=== PATIENT | female | born 1940 | race Caucasian/White ===

== ENCOUNTER → 2017-08-24 | Day surgery (SDC) | payer OTHER ==
[2017-08-05 09:10] VITALS: Ht 157.5 cm; Wt 72.7 kg
[~2017-08-24] VITALS: Ht 157.5 cm; Wt 72.7 kg
[~2017-08-24] MED LIST: 500ML BSS 0.3ML EPI 1:1000PF IRRIG ONE; ACET-1256 PO; ACETAMINOPHEN 325 MG TAB PO PRN; AMVISC PLUS 0.8ML SYRINGE INT OCU ONE; ASPI-390 PO; ATROPINE SULFATE 0.1 MG/ML 5ML SYR IV PRN; AcetaZOLAMIDE 250 MG TAB PO SCH; BETAXOLOL HCL 0.25% OP SUSP PER DROP CHARGE OPR SCH; BRIMONIDINE TART 0.2% OP SOLN PER DROP CHARGE ONE; ENDOCOAT 0.85ML SYRINGE INT OCU ONE; EpHEDrine SULFATE INJ 50 MG/ML AMP IV PRN; EpINEphrine INJ 1MG/ML AMP 1 MG/ML AMP ONE; LACTATED RINGER'S 1000ML 500 ML IV SCH; LIDOCAINE 4% OP SOLN DROP CHARGE ONE; LIDOCAINE 4% OP SOLN DROP CHARGE OPR SCH; LIDOCAINE HCL 1% MPF 2 ML VIAL ONE; LOSA1TAB38 PO; METO50TA7 PO; MIDAZOLAM HCL 1 MG/ML 2ML VIAL ONE; MIX: 4ML BSS 1ML EPI 1:1000 PF INSTIL ONE; MOXIFLOXACIN OPH SOLN PER DROP CHARGE ONE; MULT-506 PO; OCUCOAT 1 ML SOLN IO ONE; POVIDONE-IODINE OP SOLN 30 ML BTL ONE; PROPARACAINE 0.5% OP SOLN PER DROP CHARGE OPR SCH; PRVC/20 PO; SERT50TA PO; TOBRAMYCIN/DEXAMETHASONE OPH OINT PER APPLN CHARGE ONE; TRAM-10 PO
--- NOTE | 2017-08-24 06:31 | History & Physical Bridge - [place] ---
H&P Re-Evaluation Bridge Note: I have examined the patient, reviewed the History & Physical and in the interval since the performance of the History & Physical I have noted the following changes of clinical significance: No changes noted
[2017-08-24] MEDS: PHENYLEPHRINE HCL 2.5% OP SOLN PER DROP CHARGE OPR SCH ×2 (06:53→06:59)
[2017-08-24] MEDS: TROPICAMIDE 1% OP SOLN PER DROP CHARGE OPR SCH ×2 (06:54→07:00)
[2017-08-24] MEDS: CYCLOPENTOLATE HCL 1% OP SOLN PER DROP CHARGE OPR SCH ×2 (06:55→07:01)
[2017-08-24] MEDS: MOXIFLOXACIN OPH SOLN PER DROP CHARGE OPR SCH ×2 (06:56→07:07)
--- NOTE | 2017-08-24 07:31 | Discharge Instructions-SurgCtr ---
Discharge Instructions Date of Service Aug 24, 2017. Visit Reason for Visit: Cataract Right Eye Discharge Discharge Diagnosis / Problem: lens implant right eye Discharge Goals Goal(s): Improve function Activity Recommendations Activity Limitations: resume your previous activity Lifting Limitations: no more than 10 pounds Exercise/Sports Limitations: gradually increase as tolerated May Resume Sexual Activity: when tolerated Shower/Bathe: tomorrow Driving or Machine Use: resume 1 day after discharge Anesthesia . Post Anesthesia Instructions: If you have had General Anesthesia or IV Sedation: * Do not drive today. * Resume driving when surgeon permits. * Do not make important decisions or sign legal documents today. * Call surgeon for: 1. Temperature elevations greater than 101 degrees F. 2. Uncontrollable pain. 3. Excessive bleeding. 4. Persistent nausea and vomiting. 5. Medication intolerance (nausea, vomiting or rash). * For nausea and vomiting use only clear liquids such as: tea, soda, bouillon until nausea subsides, then gradually increase diet as tolerated. * If you have any concerns or questions, call your surgeon's office. If physician is unavailable and it is an emergency, call 911 or go to the nearest emergency room. . Instructions / Follow-Up Instructions / Follow-Up ACTIVITY RECOMMENDATIONS: * Light activities. * Mild irritation and blurred vision are common for the first few days. * You may walk outside, read, watch television. * Redness around the white part of the eye is common. MEDICATIONS: Resume previous medications unless instructed otherwise by your surgeon. * Take white Diamox (Acetazolamide) tablet at 1 pm today. Start all eye drops at 1 pm today: * Eye drops (today and tomorrow): Prednisone - one drop in operative eye every 3 hours while awake Ofloxacin - one drop in operative eye every 3 hours while awake SPECIAL CARE INSTRUCTIONS: * Tape plastic shield over eye to sleep at night. Call your doctor at with any concerns or problems. FOLLOW UP VISIT: Follow-up with Dr Gustafson at [place] office as scheduled. Diet Recommendations Home Diet: no limitations Procedures Procedures Performed: cataract extraction with lens implant Pending Studies Studies pending at discharge: no Medical Emergencies . Who to Call and When: Medical Emergencies: If at any time you feel your situation is an emergency, please call 911 immediately. . Non-Emergent Contact Non-Emergency issues call your: [employer] Call Non-Emergent contact if: your pain is not controlled [phone] . . "Provider Documentation" section prepared by Jesus Gustafson. .
--- NOTE | 2017-08-24 07:33 | [facility] Operative Report ---
Operative Report Date of Service Aug 24, 2017. Operative Report 1. PREOPERATIVE DIAGNOSIS: Senile nuclear cataract, right eye. 2. POSTOPERATIVE DIAGNOSIS: Senile nuclear cataract, right eye. 3. PROCEDURE: Phacoemulsification of right cataract with posterior chamber lens implant, type [employer], model MX60, power +20.5 diopters. ANESTHESIA: Local standby. SURGEON: Dr. Gustafson. COMPLICATIONS: None. OPERATING TIME: 10 minutes. 4. OPERATION AND FINDINGS: DESCRIPTION OF PROCEDURE: The right pupil was dilated. The anesthetic was administered using a topical technique. The right eye was prepped and draped. A speculum was placed. A clear corneal incision was formed. The chamber was filled with Amvisc Plus and Endocoat. Epinephrine solution was used. A paracentesis was placed. A capsulorrhexis was performed. The nucleus was hydrodissected. The lens was removed with phacoemulsification. Time was 3.77 seconds. The aspiration unit was used to remove the cortex. The capsule was filled with Amvisc Plus. The lens implant was folded and placed into the capsule. The incision was hydrated. The Amvisc was aspirated. The wound was secure. The chamber was deep. The pupil was round. Brimonidine, TobraDex ointment and Vigamox solution were placed. The speculum was removed. The patient was returned to the Recovery Room in stable condition. I attest to the content of the Intraoperative Record and any orders documented therein. Any exceptions are noted below. The scribe's documentation has been prepared in my presence, under my direction and personally reviewed by me in its entirety. I confirm that the note above accurately reflects all work, treatment, procedures, and medical decision making performed by me. I personally scribed for Jesus Gustafson M.D. ([email or web address]) on 08/24/17 at 07:33. Electronically submitted by Kyra Ervin (MIN).
--- NOTE | 2017-08-24 07:40 | Anesthesia Progress Nt - [facility] ---
Anesthesia Post Op Note Date & Time Aug 24, 2017 at 07:40 Vital Signs Pain Intensity: 3 Vital Signs Past 12 Hours Date Time Temp Pulse Resp B/P (MAP) Pulse Ox O2 Delivery O2 Flow Rate FiO2 08/24/17 06:47 36.9 78 16 145/70 (95) 96 Room Air Notes Mental Status: alert / awake / arousable, participated in evaluation Pt Amnestic to Procedure: Yes Nausea / Vomiting: adequately controlled Pain: adequately controlled Airway Patency, RR, SpO2: stable & adequate BP & HR: stable & adequate Hydration State: stable & adequate Anesthetic Complications: no major complications apparent
[2017-08-24 07:44] VITALS: TEMP 36.8
[2017-08-24 08:06] VITALS: BP 161/81; PULSE 60; O2SAT 97
== END | disposition home or self-care (01) ==
LOC: X.SURG 06:25
PROVIDERS: ATTEND Specialist
DX: H25.11 Age-related nuclear cataract, right eye (principal); I10 Essential (primary) hypertension; J44.9 Chronic obstructive pulmonary disease, unspecified; K21.9 Gastro-esophageal reflux disease without esophagitis; Z90.89 Acquired absence of other organs; Z90.710 Acquired absence of both cervix and uterus; F41.9 Anxiety disorder, unspecified; F32.9 Major depressive disorder, single episode, unspecified; Z85.818 Personal history of malignant neoplasm of other sites of lip, oral cavity, and pharynx; Z79.899 Other long term (current) drug therapy

== ENCOUNTER → 2018-01-09 | Outpatient (CLI) | payer OTHER ==
[~2018-01-09] MED LIST changes: -500ML BSS 0.3ML EPI 1:1000PF IRRIG ONE; -ACETAMINOPHEN 325 MG TAB PO PRN; -AMVISC PLUS 0.8ML SYRINGE INT OCU ONE; -ATROPINE SULFATE 0.1 MG/ML 5ML SYR IV PRN; -AcetaZOLAMIDE 250 MG TAB PO SCH; -BETAXOLOL HCL 0.25% OP SUSP PER DROP CHARGE OPR SCH; -BRIMONIDINE TART 0.2% OP SOLN PER DROP CHARGE ONE; -ENDOCOAT 0.85ML SYRINGE INT OCU ONE; -EpHEDrine SULFATE INJ 50 MG/ML AMP IV PRN; -EpINEphrine INJ 1MG/ML AMP 1 MG/ML AMP ONE; -LACTATED RINGER'S 1000ML 500 ML IV SCH; -LIDOCAINE 4% OP SOLN DROP CHARGE ONE; -LIDOCAINE 4% OP SOLN DROP CHARGE OPR SCH; -LIDOCAINE HCL 1% MPF 2 ML VIAL ONE; -METO50TA7 PO; +METO50TA8 PO; -MIDAZOLAM HCL 1 MG/ML 2ML VIAL ONE; -MIX: 4ML BSS 1ML EPI 1:1000 PF INSTIL ONE; -MOXIFLOXACIN OPH SOLN PER DROP CHARGE ONE; -OCUCOAT 1 ML SOLN IO ONE; -POVIDONE-IODINE OP SOLN 30 ML BTL ONE; -PROPARACAINE 0.5% OP SOLN PER DROP CHARGE OPR SCH; -TOBRAMYCIN/DEXAMETHASONE OPH OINT PER APPLN CHARGE ONE
[2018-01-09 17:45] LABS: BASO % 0.4 %; BASO ABS # 0.03 K/uL (0-0.2); EOS % 3.1 %; EOS ABS # 0.22 K/uL (0-0.5); HEMATOCRIT 37.7 % (37-47); HEMOGLOBIN 11.5 g/dL (12.0-16.0); IG# 0.01 K/uL (0.00-0.02); LYMPH % 26.6 %; LYMPH ABS # 1.86 K/uL (1.2-3.4); MEAN CORPUSCULAR HEMOGLOBIN 30.5 pg (25-34); MEAN CORPUSCULAR HGB CONC 30.5 g/dl (32-36); MEAN PLATELET VOLUME 10.4 fL (7.4-10.4); MONO ABS # 0.42 K/uL (0.11-0.59); NEUT % 63.8 %; NEUT ABS # 4.45 K/uL (1.4-6.5); PLATELET COUNT 295 K/uL (130-400); RED CELL DISTRIBUTION WIDTH CV 14.1 % (11.5-14.5); RED CELL DISTRIBUTION WIDTH SD 51.7 fL (36.4-46.3); WHITE BLOOD COUNT 6.99 K/uL (4.8-10.8)
[2018-01-09 18:35] LABS: ALBUMIN 4.2 gm/dl (3.4-5.0); ALKALINE PHOSPHATASE 75 U/L (45-117); ALT/SGPT 19 U/L (12-78); AST/SGOT 22 U/L (15-37); BLOOD UREA NITROGEN 18 mg/dl (7-18); CALCIUM 9.3 mg/dl (8.5-10.1); CARBON DIOXIDE 29 mmol/L (21-32); CHOLESTEROL 201 mg/dl (0-200); CREATININE 0.67 mg/dl (0.60-1.20); GLUCOSE 99 mg/dl (70-99); LDL CHOLESTEROL CALCULATED 106 mg/dl; POTASSIUM 4.1 mmol/L (3.5-5.1); SODIUM 138 mmol/L (136-145); TOTAL PROTEIN 7.9 gm/dl (6.4-8.2)
== END | disposition home or self-care (01) ==
LOC: C.LABMFLN 13:47
PROVIDERS: ATTEND Family Medicine
DX: E78.5 Hyperlipidemia, unspecified (principal); R05 Cough; E89.0 Postprocedural hypothyroidism

== ENCOUNTER → 2018-02-01 | Outpatient (CLI) | payer OTHER ==
[2018-02-01 12:37] LABS: BASO % 0.4 %; BASO ABS # 0.03 K/uL (0-0.2); EOS ABS # 0.21 K/uL (0-0.5); HEMATOCRIT 37.1 % (37-47); HEMOGLOBIN 11.6 g/dL (12.0-16.0); IG# 0.01 K/uL (0.00-0.02); LYMPH % 22.4 %; LYMPH ABS # 1.57 K/uL (1.2-3.4); MEAN CELL VOLUME 99.5 fL (80-100); MEAN CORPUSCULAR HEMOGLOBIN 31.1 pg (25-34); MEAN CORPUSCULAR HGB CONC 31.3 g/dl (32-36); MEAN PLATELET VOLUME 10.1 fL (7.4-10.4); MONO % 6.6 %; MONO ABS # 0.46 K/uL (0.11-0.59); NEUT % 67.5 %; NEUT ABS # 4.74 K/uL (1.4-6.5); PLATELET COUNT 254 K/uL (130-400); RED CELL DISTRIBUTION WIDTH CV 14.5 % (11.5-14.5); RED CELL DISTRIBUTION WIDTH SD 52.7 fL (36.4-46.3); WHITE BLOOD COUNT 7.02 K/uL (4.8-10.8)
== END | disposition home or self-care (01) ==
LOC: C.LABMFLN 10:19
DX: D64.9 Anemia, unspecified (principal)

== ENCOUNTER → 2018-06-19 | Outpatient (CLI) | payer OTHER ==
[2018-06-19 18:42] LABS: CHOLESTEROL 148 mg/dl (0-200); LDL CHOLESTEROL CALCULATED 68 mg/dl
== END | disposition home or self-care (01) ==
LOC: C.LABMFLN 15:37
PROVIDERS: ATTEND Family Medicine
DX: E78.5 Hyperlipidemia, unspecified (principal); I48.91 Unspecified atrial fibrillation

== ENCOUNTER 2024-09-26 13:18 | Inpatient (IN) ==
[2024-09-26 14:15] LABS: Eosinophils # (auto) 0.04 K/uL (0.00-0.50); Eosinophils % (auto) 0.7 %; Hematocrit (blood only) 35.4 % (37.0-47.0); Hemoglobin 10.8 g/dl (12.0-16.0); Immature Granulocytes # (auto) 0.04 K/uL (0.01-0.20); Immature Granulocytes % (auto) 0.7 %; Lymphocytes % (auto) 16.2 %; Mean Corpuscular Hgb Conc 30.5 g/dL (32.0-36.0); Mean Corpuscular Volume 101.7 fL (80.0-100.0); Mean Platelet Volume 9.9 fL (9.4-12.4); Neutrophils # (auto) 4.09 K/uL (1.40-6.50); Neutrophils % (auto) 73.4 %; Platelet Count 167 K/uL (130-400); RDW Standard Deviation 51.7 fL (36.4-46.3); Red Blood Count 3.48 M/uL (4.20-5.40); White Blood Count 5.57 K/ul (4.8-10.8)
--- NOTE | 2024-09-26 14:26 | XRay Report ---
XR chest 1V portable HISTORY: 84 years-old Female Chest pain, nonspecific COMPARISON: 08/25/2018 TECHNIQUE: AP view of the chest FINDINGS: Cardiac silhouette is enlarged. Mitral annular calcifications. Atherosclerosis of the aorta. Mild chr onic interstitial coarsening. No pneumothorax or large pleural effusion. No airspace consolidation ty pical for pneumonia. Mild left basilar atelectasis versus scarring. Bones appear grossly intact. IMPRESSION: Cardiomegaly without acute process. ACT 112: Negative or not required by law. The above report was generated using voice recognition software. It may contain grammatical, syntax o r spelling errors. Electronically signed by: Zbigniew Baltazar M.D. 09/26/2024 2:24 PM
[2024-09-26 14:41] LABS: Prothrombin Time 11.3 Seconds (9.0-12.0)
[2024-09-26 14:43] LABS: Alanine Aminotransferase 20 U/L (7-52); Albumin Globulin Ratio 1.3 (0.9-2); Albumin Level 4.4 gm/dl (3.4-5.0); Alkaline Phosphatase 71 U/L (34-104); Anion Gap 9 (3-11); Aspartate Aminotransferase 38 U/L (13-39); BUN Creatinine Ratio 25.7 (10-20); Bilirubin,Total 0.4 mg/dl (0.2-1.0); Blood Urea Nitrogen 29 mg/dl (6-23); Calcium 9.6 mg/dl (8.6-10.3); Carbon Dioxide 26 mmol/L (21-32); Chloride 104 mmol/L (98-107); Globulin 3.4 gm/dl (2.5-4.0); Glucose 100 mg/dl (70-99(Fasting)); Lipase 63 U/L (11-82); Magnesium 1.9 mg/dl (1.7-2.4); Phosphorus 3.6 mg/dl (2.5-4.9); Potassium 3.5 mmol/L (3.5-5.1); Sodium 139 mmol/L (136-145); Total Protein 7.8 gm/dl (6.0-8.3)
[2024-09-26 14:48] LABS: Troponin I High Sensitivity 20.6 pg/ml (0-14)
[2024-09-26 14:57] LABS: Thyroid Stimulating Hormone 2.384 uIu/ml (0.300-4.500)
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
[2024-09-26] MEDS: METOPROLOL TARTRATE 1 MG/ML VIAL IV STA (15:39)
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
[2024-09-26] MEDS ORDERED: ALBUTEROL HFA 8 GM INHALER INH PRN (17:30)
[2024-09-26] MEDS ORDERED: ACETAMINOPHEN 325 MG TAB PO PRN (17:30)
[2024-09-26] MEDS: Patient's HEIGHT &/or WEIGHT Needed STA (18:20)
[2024-09-26] MEDS: HYDROCODONE/ACETAMOPHEN 5/325MG TAB PO SCH (18:20)
[2024-09-26 18:31] LABS: Appearance Urine Cloudy (Clear); Bacteria Urine Automated 4+ (None Seen); Bilirubin Urine Negative (Negative); Blood Urine 1+ (Negative); Color Urine Yellow; Epithelial Cell Urine Auto 0-2 /hpf (0-2); Glucose Urine UA Negative (Negative); Ketones Urine Negative (Negative); Leukocyte Esterase Urine 2+ (Negative); Nitrite Urine Positive (Negative); Protein Urine 2+ (Negative); RBC Urine Automated 0-2 /hpf (0-2); Specific Gravity Urine 1.021 (1.000-1.030); Urobilinogen Urine Negative (Negative); WBC Urine Automated >50 /hpf (0-5)
[2024-09-26] MEDS: RIVAROXABAN 15 MG TAB PO SCH (19:26)
[2024-09-26] MEDS ORDERED: METOPROLOL TARTRATE 1 MG/ML VIAL IV PRN (20:29)
[2024-09-26] MEDS ORDERED: MELATONIN 3 MG TAB PO PRN (20:39)
[2024-09-26] MEDS: SERTRALINE HCL 100 MG TABLET PO SCH (20:52)
[2024-09-26] MEDS: PRAVASTATIN SOD 40 MG TAB PO SCH (20:52)
[2024-09-26] MEDS: POTASSIUM CHLORIDE 10 MEQ TABCR PO SCH (20:52)
[2024-09-26] MEDS: busPIRone 15 MG TAB PO SCH (20:53)
[2024-09-26] MEDS: METOPROLOL TARTRATE 1 MG/ML VIAL IV ONE (20:53)
[2024-09-26] MEDS: LORazepam 0.5 MG TAB SL PRN (21:27)
[2024-09-26] MEDS: cefTRIAXone SODIUM 2,000 MG/50 ML BAG IV SCH (21:28)
[2024-09-26] MEDS: DICLOFENAC SOD 1% GEL 100 GM TUBE EXT SCH (21:51)
[2024-09-26] MEDS: LORazepam 2 MG/1 ML VIAL IV STA (23:00)
--- NOTE | 2024-09-26 23:14 | Communication Note ---
Date of Service: September 26, 2024 Alerted by nursing 20:21 that patient having 9/10 left sided chest pain. Resident to bedside. EKG, per my read, without obvious ST elevations. Rate elev ated in the 120s. Given 2.5 mg IV metoprolol. Pain reproducible with medium pressure. Has this pain at home as well. Has improved since switching to laying on her right side. HR rapid and irregular. Did order voltaren gel and 0.5 mg SL ativan for acute anxiety. Alerted by nursing 22:32 that patient feels she is "burning up", HR in the 160s, very anxious. Symptoms occurred about 30 minutes after finishing her dose of CTX. Resident to bedside. Upon my interview patient sitting comfortable in a chair. Is having some anxious movements and slightly elevated respiratory rate. HR in the 130s at that time. No rashes, fevers, or chills. Patient states feeling like she had an episode of panic. This is atypical for her. Patient had calmed down a good amount. SL ativan with minimal effects, ordered 1 mg IV ativan. Did review tele with the site monitor - a fib with RVR, narrow complex, irregular Alerted by nursing 23:34 that patient has had a change in mental status. Patient less anxious after ativan, but now appears to be in hyperactive delirium. Patient appears to be hallucinating, speaking to herself, and is no longer oriented. Patient OOB despite bed alarm. Did trial mits and patient removed them swiftly. Ordered 1:1. Would avoid ativan in the future. Will continue to follow with patient care. Resident Activity Tracking Resident Involvement: Resident Care Provided Care Provided: Adult Hospital Medicine
[2024-09-27] MEDS: METOPROLOL TARTRATE 1 MG/ML VIAL IV PRN (00:21)
[2024-09-27 03:37] LABS: Basophils # (auto) 0.01 K/uL (0.00-0.20); Basophils % (auto) 0.2 %; Eosinophils # (auto) 0.01 K/uL (0.00-0.50); Eosinophils % (auto) 0.2 %; Hematocrit (blood only) 32.4 % (37.0-47.0); Hemoglobin 10.2 g/dl (12.0-16.0); Immature Granulocytes # (auto) 0.03 K/uL (0.01-0.20); Immature Granulocytes % (auto) 0.5 %; Lymphocytes # (auto) 0.63 K/uL (1.20-3.40); Lymphocytes % (auto) 10.8 %; Mean Corpuscular Hemoglobin 31.5 pg (25.0-34.0); Mean Corpuscular Hgb Conc 31.5 g/dL (32.0-36.0); Mean Platelet Volume 10.4 fL (9.4-12.4); Monocytes % (auto) 6.9 %; Neutrophils # (auto) 4.75 K/uL (1.40-6.50); Neutrophils % (auto) 81.4 %; Platelet Count 153 K/uL (130-400); RDW Coefficient of Variation 13.9 % (11.5-14.5); RDW Standard Deviation 50.7 fL (36.4-46.3); Red Blood Count 3.24 M/uL (4.20-5.40); White Blood Count 5.83 K/ul (4.8-10.8)
[2024-09-27 03:44] LABS: BUN Creatinine Ratio 29.5 (10-20); Calcium 9.1 mg/dl (8.6-10.3); Creatinine Clr Calc Pharmacy 34.8 ml/min; Potassium 4.4 mmol/L (3.5-5.1)
--- NOTE | 2024-09-27 06:03 | Electrocardiogram Report ---
Test Reason : Blood Pressure : */* mmHG Vent. Rate : 115 BPM Atrial Rate : * BPM P-R Int : * ms QRS Dur : 112 ms QT Int : 348 ms P-R-T Axes : * -59 98 degrees QTcB Int : 481 ms Atrial fibrillation with rapid ventricular response with premature ventricular or aberrantly conducte d complexes Left anterior fascicular block Minimal voltage criteria for LVH, may be normal variant Nonspecific ST and T wave abnormality Abnormal ECG When compared with ECG of 25-Aug-2018 21:09, Nonspecific T wave abnormality no longer evident in Inferior leads T wave inversion less evident in Lateral leads Confirmed by Luke Retana ([id number]) on 09/27/2024 6:03:39 AM Referred By: REFERRED SELF Confirmed By: Luke Retana
[2024-09-27] MEDS: METOPROLOL TARTRATE 1 MG/ML VIAL IV STA (07:33)
[2024-09-27] MEDS: ONDANSETRON INJ 2 MG/ML 2 ML VIAL IV PRN (08:38)
[2024-09-27] MEDS: LOSARTAN POTASSIUM 50 MG TAB PO SCH (08:42)
[2024-09-27] MEDS: FAMOTIDINE 40 MG TABLET PO PRN (08:43)
[2024-09-27] MEDS ORDERED: STAT IV Infusion **Titration per Protocol STA (08:54)
--- NOTE | 2024-09-27 09:02 | Cardiology Consultation ---
Date of Consultation September 27, 2024 Assessment & Plan (1) Atrial fibrillation with rapid ventricular response: (2) On amiodarone therapy: (3) Chest pain: (4) Elevated troponin: (5) Mitral regurgitation: (6) CAD (coronary artery disease): (7) Hypertension: Plan ASSESSMENT/PLAN: 1. Paroxysmal atrial fibrillation with rapid ventricular response: Very symptomatic in the past and currently. Recommend restoring sinus rhythm. Risk and benefits of cardioversion were discussed with her. She was agreeable to proceed. Continue her home dose of amiodarone 100 mg daily. It was apparently reduced in the past due to tremor. Further adjustments can be determined in the outpatient setting if she has significant recurrence of her atrial fibrillation. Continue anticoagulation for stroke risk reduction, without interruption for at least 4 weeks following cardioversion. 2. Chest pain: Per her history, chest pain has been attributed to atrial fibrillation in the past and currently. Can reassess her symptoms following cardioversion. 3. Elevated troponin: Very mildly elevated. Likely due to demand ischemia in the setting of A-fib with RVR. 4. Amiodarone therapy: Takes 100 mg of amiodarone chronically at home. Apparently had dose reduced in the past by her providers due to tremor. Monitor TSH and transaminase levels while on amiodarone. Resume her home dose of amiodarone to help try to maintain sinus rhythm following cardioversion. 5. Mitral and tricuspid regurgitation: Nonsevere within the past couple of months. Can be followed up in the outpatient setting with Dr. Muñoz. 6. UTI: As per primary hospitalist service. 7. Hypertension: Blood pressure has been elevated but also has been very anxious with her A-fib with RVR. Continue ARB and beta-mihai. Further adjustments can be made by the primary hospitalist service if appropriate. 8. CAD: Per records, nonobstructive CAD. Will reassess for chest discomfort once sinus rhythm is restored. Risk factor modification. On statin therapy. Details of her CAD are not well-known to me at the time of this note. 9. Disposition: Follow-up with Dr. Muñoz in the outpatient setting, her primary all around presser. Plan of care communicated with primary hospital team, Dr. Ochoa. Plan of care discussed with nursing staff at the bedside this morning. Thank you for allowing me to participate in the care of your patient. Please call for any other questions or concerns. Sincerely, Nikita Retana M.D. History of Present Illness Reason for Consultation: afib rvr Requesting Physician: Dr. Reed Attending Physician: Aramis Araujo DO History of Present Illness Mrs. Frank is a very pleasant 84-year-old female with a history significant for paroxysmal atrial fibrillation on amiodarone and anticoagulation therapy, nonocclusive CAD, hypertension, dyslipidemia, and mitral regurgitation. Her primary all around presser is Dr. Muñoz. She was seen by Dr. Muñoz on 09/26/2024 in the outpatient setting and sent to the emergency department due to symptomatic atrial fibrillation. She had been in atrial fibrillation for at least several days. She has been experiencing chest discomfort, even at rest. She states that she felt the same symptoms in the past when she had atrial fibrillation and it resolved after cardioversion. She has decreased exercise tolerance and feels very weak and tired with exertion. She has dyspnea on exertion. She states that the symptoms were not present outside of the A-fib. When I walked in her room this morning, she said lets get things going. She wanted to be cardioverted. Overnight, she received Ativan and apparently had some hallucinations and confusion. Things seem to be improved this morning. She has been kept NPO. She denies melena, hematochezia, hematuria, TIA, stroke, diabetes. Review of systems: As above. Family history: Noncontributory. Social history: She denies tobacco, alcohol, or drug abuse. She lives at home with her . She had 5 children but 2 have since . She was unaccompanied. Allergies Allergy/AdvReac Type Severity Reaction Status Date / Time brimonidine Allergy Unknown not sure Verified 09/26/24 09:06 isosorbide [From Imdur] Allergy Verified 09/26/24 09:06 Carboxymethylcellulose Allergy Unknown not sure Uncoded 09/26/24 09:06 Home Medications Medication Instructions Recorded Confirmed Type [id number]-[id number] 250 1 tab PO Q6H PRN Migraine Headache 08/25/18 09/26/24 History mg-250 mg-65 mg tablet (Excedrin Migraine) multivitamin 1 tab PO QAM 07/29/22 09/26/24 History potassium chloride 10 mEq 10 meq PO BID #180 tabs 03/07/24 09/26/24 Rx tablet,extended release(part/cryst) ondansetron HCl 4 mg tablet 4 mg PO Q8H PRN nausea and 03/26/24 09/26/24 Rx vomiting #30 tabs albuterol sulfate 90 mcg/actuation 2 puff inhalation Q6H PRN 03/27/24 09/26/24 Rx aerosol inhaler shortness of breath or wheezing #6.7 grams pravastatin 40 mg tablet 40 mg PO HS #90 tabs 05/31/24 09/26/24 Rx buspirone 10 mg tablet 15 mg (1.5 x 10 mg) PO TID #270 08/03/24 09/26/24 Rx tabs sertraline 100 mg tablet 100 mg PO BID #180 tabs 08/24/24 09/26/24 Rx hydrocodone 5 mg-acetaminophen 325 1 tab PO Q6H #120 tabs 09/17/24 09/26/24 Rx mg tablet acetaminophen 500 mg tablet 1,000 mg PO Q6H PRN Pain 09/26/24 09/26/24 History famotidine 40 mg tablet (Pepcid) 40 mg PO DAILY PRN Heartburn 09/26/24 09/26/24 History furosemide 20 mg tablet (Lasix) 60 mg PO QAM 09/26/24 09/26/24 History losartan 100 mg tablet (Cozaar) 100 mg PO QAM 09/26/24 09/26/24 History metoprolol succinate 25 mg 25 mg PO QAM 09/26/24 09/26/24 History tablet,extended release 24 hr ramelteon 8 mg tablet (Rozerem) 4 mg PO HS 09/26/24 09/26/24 History rivaroxaban 15 mg tablet (Xarelto) 15 mg PO QPM 09/26/24 09/26/24 History Problem List Elevated troponin On rivaroxaban therapy (Acute) Generalized weakness (Acute) Dyspnea on minimal exertion (Acute) Atrial fibrillation with rapid ventricular response (Acute) Palpitations Pain of both hip joints Thoracic back pain Cervical pain Rib pain on left side Status post fall Anticoagulant long-term use Head injury Confusion Lumbar pain CKD (chronic kidney disease), stage III Headache On amiodarone therapy Chest pain Abdominal pain Fatigue Left-sided chest pain Bronchitis Left ear impacted cerumen Chest pain Anemia Myalgia Anxiety Hernia Renal stone Left lower quadrant abdominal mass Situational anxiety Tricuspid regurgitation (Chronic) Shortness of breath (Chronic) Restrictive lung disease (Chronic) Pulmonary HTN (Chronic) New onset atrial fibrillation (Chronic) Nausea and vomiting (Chronic) Multiple pulmonary nodules (Chronic) Mitral regurgitation (Chronic) Medicare annual wellness visit, initial (Chronic) Malignant neoplasm of tonsil (Chronic) Leukocytosis (Chronic) Hypokalemia (Chronic) Hypertension (Chronic) Hyperlipidemia (Chronic) H/O partial thyroidectomy (Chronic) Epistaxis (Chronic) Elevated liver function tests (Chronic) Edema (Chronic) Dyspnea, unspecified (Chronic) Dysphagia (Chronic) Depression (Chronic) Cough (Chronic) Chest pain (Chronic) COPD (chronic obstructive pulmonary disease) (Chronic) CAD (coronary artery disease) (Chronic) Bilateral leg edema (Chronic) Anemia (Chronic) Abdominal pain (Chronic) Patient History Medical History History of thyroid cancer Thyroid cancer Afib Surgical History History of tonsillectomy History of carpal tunnel surgery bilateral History of tooth extraction 11 years old History of section History of tubal ligation History of throat surgery History of cardiac catheterization History of colonoscopy History of colon surgery History of hysterectomy History of back surgery Family History Mother Malignant melanoma Coronary heart disease Son Blood clot in vein basilio - 52 years old Asthma Father Coronary heart disease Denies family history of Ovarian cancer Prostate cancer Myocardial infarction Breast cancer Colorectal cancer Social History Smoking Status: Never smoker Second Hand Exposure: Yes; Do You Dip or Chew Tobacco: No; Hx Alcohol Use: Yes Alcohol type: wine Hx Substance Use: No Preferred Language: [place] Citizen Communication Ability: Effective Visual Impairment: Partially Limited Hearing Ability: Normal Timber Management Specialist Required: Yes Beliefs That Will Affect Care: None marital status: Current Living Situation: Spouse current occupational status: retired How many Children do You have: 5 Other Information That Helps Us Care for You: No Feels Safe at Home: Yes Safety Concerns: Feels Safe At This Time Childhood Exposure to Second-Hand Smoke: Yes Diet: regular caffeine: Yes (nini tacos, coffee once daily) during the past year weight has: remained stable Dental Care, Regularly: No Physical Activity Frequency: Does not Exercise Seatbelt Use: always Sunscreen Use: No Do you think of yourself as: straight/heterosexual Gender Identity: Female Assistive Devices: Cane, Denture - Upper, Denture - Lower and Walker Physical Exam Physical Exam: Gen.: No acute distress. Alert and oriented x 3. HEENT: Anicteric sclera. Neck: No JVD. No bruits. Normal carotid upstrokes bilaterally. Cardiac: Irregularly irregular and tachycardic. Normal S1-S2. 1/6 systolic murmur. Pulmonary: Clear to auscultation bilaterally without wheezes, rales, or rhonchi. Abdomen: Soft, nontender, nondistended, with normoactive bowel sounds. No bruits noted. Extremities: 2+ radial pulses bilaterally. 2+ posterior tibialis pulses bilaterally. No edema or cyanosis. Results & Data Vital Signs (Past 12 Hours) Vital Signs Temp Pulse Pulse Resp BP BP BP 09/27/24 07:58 141 H 154/100 H 09/27/24 07:33 145 H 130/86 09/27/24 03:47 36.7 C 114 H 18 125/88 09/27/24 00:36 132 H 152/82 H 09/27/24 00:21 137 H 155/83 H 09/26/24 22:33 36.7 C 138 H 18 156/95 H 09/26/24 22:20 125 H 148/72 H 09/26/24 21:54 116 H Pulse Ox O2 Del Method 09/27/24 07:58 09/27/24 07:33 09/27/24 03:47 91 Room Air 09/27/24 00:36 09/27/24 00:21 09/26/24 22:33 98 Room Air 09/26/24 22:20 09/26/24 21:54 Laboratory Results Laboratory Results - last 24 hr 09/26/24 09/26/24 09/26/24 13:51 15:42 17:35 WBC 5.57 RBC 3.48 L Hgb 10.8 L Hct 35.4 L MCV 101.7 H MCH 31.0 MCHC 30.5 L RDW Std Deviation 51.7 H RDW Coeff of Inez 14.0 Plt Count 167 MPV 9.9 Immature Gran % (Auto) 0.7 Neut % (Auto) 73.4 Lymph % (Auto) 16.2 Saunders % (Auto) 9.0 Eos % (Auto) 0.7 Baso % (Auto) 0.0 Neut # (Auto) 4.09 Lymph # (Auto) 0.90 L Saunders # (Auto) 0.50 Eos # (Auto) 0.04 Baso # (Auto) 0.00 Immature Gran # (Auto) 0.04 PT 11.3 INR 1.0 Sodium 139 Potassium 3.5 Chloride 104 Carbon Dioxide 26 Anion Gap 9 BUN 29 H Creatinine 1.13 Est Cr Clr Drug Dosing Not Reportable eGFR 47.38 BUN/Creatinine Ratio 25.7 H Glucose 100 H Calcium 9.6 Phosphorus 3.6 Magnesium 1.9 Total Bilirubin 0.4 AST 38 ALT 20 Alkaline Phosphatase 71 Troponin I High Sens 20.6 H 20.8 H Total Protein 7.8 Albumin 4.4 Globulin 3.4 Albumin/Globulin Ratio 1.3 Lipase 63 TSH 2.384 Urine Color Yellow Urine Appearance Cloudy A Urine pH 5.0 Ur Specific [place] 1.021 Urine Protein 2+ H Urine Glucose (UA) Negative Urine Ketones Negative Urine Blood 1+ H Urine Nitrite Positive A Urine Bilirubin Negative Urine Urobilinogen Negative Ur Leukocyte Esterase 2+ H Urine WBC (Auto) >50 H Urine RBC (Auto) 0-2 U Hyaline Cast (Auto) 6-10 H U Epithel Cells (Auto) 0-2 Urine Bacteria (Auto) 4+ H 09/26/24 09/27/24 09/27/24 20:58 02:54 07:44 WBC 5.83 RBC 3.24 L Hgb 10.2 L Hct 32.4 L MCV 100.0 MCH 31.5 MCHC 31.5 L RDW Std Deviation 50.7 H RDW Coeff of Inez 13.9 Plt Count 153 MPV 10.4 Immature Gran % (Auto) 0.5 Neut % (Auto) 81.4 Lymph % (Auto) 10.8 Saunders % (Auto) 6.9 Eos % (Auto) 0.2 Baso % (Auto) 0.2 Neut # (Auto) 4.75 Lymph # (Auto) 0.63 L Saunders # (Auto) 0.40 Eos # (Auto) 0.01 Baso # (Auto) 0.01 Immature Gran # (Auto) 0.03 PT INR Sodium 137 Potassium 4.4 D Chloride 105 Carbon Dioxide 23 Anion Gap 9 BUN 28 H Creatinine 0.95 Est Cr Clr Drug Dosing 34.8 eGFR 58.35 BUN/Creatinine Ratio 29.5 H Glucose 130 H Calcium 9.1 Phosphorus Magnesium Total Bilirubin AST ALT Alkaline Phosphatase Troponin I High Sens 20.2 H 24.7 H 34.2 H Total Protein Albumin Globulin Albumin/Globulin Ratio Lipase TSH Urine Color Urine Appearance Urine pH Ur Specific [place] Urine Protein Urine Glucose (UA) Urine Ketones Urine Blood Urine Nitrite Urine Bilirubin Urine Urobilinogen Ur Leukocyte Esterase Urine WBC (Auto) Urine RBC (Auto) U Hyaline Cast (Auto) U Epithel Cells (Auto) Urine Bacteria (Auto) Diagnostic Findings Labs reviewed and notable for mildly elevated high-sensitivity troponin up to 34, normal potassium, stable renal function, normal transaminase levels, normal TSH, chronic and stable anemia. Urine culture 09/26/2024: Positive for E. coli. Telemetry personally reviewed: Atrial fibrillation with rapid ventricular response up to 170s. History and physical report reviewed. ECGs personally reviewed: ECG 09/26/2024 at 1349: A-fib RVR [address]/T wave abnormality. Possible LVH. ECG 09/27/2024 at 11:03 AM sinus rhythm with frequent supraventricular ectopic complexes. 93 bpm. PVC. LAFB. Nonspecific ST/T wave abnormality. ECG 09/27/2024 at 11:14 AM: Sinus rhythm with PACs/atrial run, and PVCs [address]/T wave abnormality. Chest x-ray 09/26/2024: No acute process per radiology. Echo 05/28/2024 [facility]: Normal LV systolic function and wall motion. EF 55 to 59%. Mild AI. Moderate MR. Moderate TR. RVSP 48. Medications Administered Current Inpatient Medications Acetaminophen (Acetaminophen 325 Mg Tab) 650 mg PO Q4H PRN PRN Reason: Pain or Fever Stop: 10/26/24 17:29 Hydrocodone Bitart/Acetaminophen (Hydrocodone/Acetamophen 5/325mg Tab) 1 tab PO Q6H CHONG Stop: 10/10/24 17:59 Last Admin: 09/27/24 03:43 Dose: 1 tab Albuterol (Albuterol Hfa 8 Gm Inhaler) 2 puffs INH Q6H PRN PRN Reason: shortness of breath or wheezing Stop: 10/26/24 17:29 Buspirone HCl (Buspirone 15 Mg Tab) 15 mg PO TID PENDING SALE TO [facility] Stop: 10/26/24 20:59 Last Admin: 09/27/24 08:42 Dose: 15 mg Diclofenac Sodium (Diclofenac Sod 1% Gel 100 Gm Tube) 2 gm EXT QID PENDING SALE TO [facility]; Protocol Stop: 10/26/24 20:59 Last Admin: 09/27/24 08:41 Dose: 2 gm Diltiazem HCl (Diltiazem Hcl 5 Mg/Ml 5 Ml Vial) 5 mg IV NOW STA Stop: 09/27/24 08:55 Famotidine (Famotidine 40 Mg Tablet) 40 mg PO DAILY PRN PRN Reason: Heartburn Stop: 10/26/24 17:29 Last Admin: 09/27/24 08:43 Dose: 40 mg Furosemide (Furosemide 20 Mg Tab) 60 mg PO QAM PENDING SALE TO [facility] Stop: 10/27/24 08:59 Ceftriaxone Sodium (Rocephin) 2,000 mg in 50 mls @ 100 mls/hr IV Q24H PENDING SALE TO [facility] Stop: 10/01/24 20:59 Last Infusion: 09/26/24 21:58 Dose: Infused Diltiazem HCl 125 mg/ Dextrose 125 mls @ 5 mls/hr IV .Q24H PENDING SALE TO [facility]; Protocol Stop: 10/27/24 08:59 Lorazepam (Lorazepam 0.5 Mg Tab) 0.5 mg SL ONE PRN PRN Reason: if anxious and unable to sleep with melatonin Stop: 10/26/24 20:40 Last Admin: 09/26/24 21:27 Dose: 0.5 mg Losartan Potassium (Losartan Potassium 50 Mg Tab) 100 mg PO QAM PENDING SALE TO [facility] Stop: 10/27/24 08:59 Last Admin: 09/27/24 08:42 Dose: 100 mg Melatonin (Melatonin 3 Mg Tab) 3 mg PO HS PRN PRN Reason: Sleep Stop: 10/26/24 20:38 Metoprolol Tartrate (Metoprolol Tartrate 1 Mg/Ml Vial) 5 mg IV Q5M PRN PRN Reason: Sustained RVR > 130 Stop: 10/26/24 17:29 Last Admin: 09/27/24 00:21 Dose: 5 mg Miscellaneous (Stat Iv Infusion Titration Per Protocol) 1 each N/A NOW STA; Protocol Stop: 09/27/24 08:55 Ondansetron HCl (Ondansetron Inj 2 Mg/Ml 2 Ml Vial) 4 mg IV Q6H PRN PRN Reason: Nausea And Vomiting Stop: 10/27/24 07:59 Last Admin: 09/27/24 08:38 Dose: 4 mg Potassium Chloride (Potassium Chloride 10 Meq Tabcr) 10 meq PO BID CHONG Stop: 10/26/24 20:59 Last Admin: 09/26/24 20:52 Dose: 10 meq Pravastatin Sodium (Pravastatin Sod 40 Mg Tab) 40 mg PO HS CHONG Stop: 10/26/24 20:59 Last Admin: 09/26/24 20:52 Dose: 40 mg Rivaroxaban (Rivaroxaban 15 Mg Tab) 15 mg PO QDD CHONG Stop: 10/26/24 18:59 Last Admin: 09/26/24 19:26 Dose: 15 mg Sertraline HCl (Sertraline Hcl 100 Mg Tablet) 100 mg PO BID CHONG Stop: 10/26/24 20:59 Last Admin: 09/27/24 08:43 Dose: 100 mg PG Care Time/CCT Total # of Minutes Spent Total Time Spent with Patient: Total time spent is greater than 50% in coordination of care (as documented) at patient's floor/unit and/or counseling patient: Coding Level of Care Code 00177 INT INP/OBS CARE 3/75MIN Diagnoses Atrial fibrillation with rapid ventricular response I48.91 On amiodarone therapy Z79.899 Chest pain R07.9 Elevated troponin R79.89 Mitral regurgitation I34.0 CAD (coronary artery disease) I25.10 Hypertension I10
[2024-09-27] MEDS: dilTIAZem HCl 5 MG/ML 5 ML VIAL IV STA (09:17)
[2024-09-27] MEDS: dilTIAZem HCL 125 MG in DEXTROSE 5% 100 ML IV SCH (09:19)
--- NOTE | 2024-09-27 09:56 | Hospitalist Progress Note ---
Date of Service September 27, 2024 Assessment & Plan (1) Atrial fibrillation with rapid ventricular response: (2) Hypertension: (3) Generalized weakness: (4) Elevated troponin: Plan #A-fib with RVR S/P Cardioversion (this AM) Indicated for Persistent Afib with RVR, Constant Chest pain and anxiety Despite Amiodarone 100 mg daily/ Metoprolol tartrate 5 mg IV( 3 doses)/ Diltiazem 1 dose H/O DC cardioversion in 2019 --- PAF afterwards Echo 05/2024: EF 55-59%, mild LVH TSH: 2.3 Cardio: Recommended Cardioversion; completed this AM; NSR post CV Continue Amiodarone 100 mg QAM. Metoprolol 25 mg PO BID started #Elevated Troponin Troponin 20.6---20.8----34; likely demanded ischemia Serial ECG: No ST-T changes #CAD (coronary artery disease) nonocclusive coronary disease H/O Hyperlipidemia Medical management : Pravastatin 40 mg PO HS #HTN BP at goal. BP: 147/87 Continue losartan 100 mg daily, metoprolol succinate ER 25 mg daily. #Anxiety Acute on chronic anxiety Sertraline 100 mg BID ongoing Bedside counselling provided Patient consolable Reassess after CV: She is much better #UTI DVT : Rivaroxaban Disposition: PCU tele CODE: Full code Diet: Heart healthy Admission and Anticipated Discharge Date Admission Date: September 26, 2024 Supervising Physician Co-Signing Physician Notes I personally examined the patient and verified all basilio points of history and exam, discussed case, and agree with decision making with Dr Ochoa feeling better after cardioversion - but also a bit confused vitals noted nad heent nc at mmm breathing unlabored no accessory muscles good effort pleasant but does seem mildly confused; knows circumstances, knows day of week, stalls on months of year backwards (missjuly, then stops trying entirely after april) afib/RVR with mild myocardial demand ischemia- s/p cardioversion delirium - seems mild but also concerning about her being able to go home yet due to being aged and per her currently having some health issues. possibly metabolic encephalopathy due to drugs but also can easily be from age/hospital environment CKD 3 stable - mostly age related Subjective Today morning Georgia is seen very anxious and restless on bedside. Nurse was there for 1:1 observation. She shares she did not sleep overnight and keeps getting anxious about her cardiac procedure. She mentions left sided chest pain over her left breast as well. Its constant pain, dull aching, non radiating. She mentions whole body aches, its not only chest pain. She feels everything started after she developed Afib, a month back. Review of Systems Review of Systems: As per HPI Physical Exam Physical Exam: Constitutional: Anxious appearing, In acute distress, follows command HEENT: Atraumatic, Normocephalic, No conjunctival injection CVS: S1 S2 no murmur, IRIR, no LE edema Respiratory: BL decreased air entry. Basal crackles noted. No increased work of breathing GI: Soft, Nondistended, Nontender, Normal Bowel sounds + Neuro: Alert, Oriented to TPP, No Focal deficit Psych: Cooperative on exam Results & Data Results & Data Vital Signs (Past 12 Hours) Vital Signs Temp Pulse Pulse Resp BP BP BP 09/27/24 07:58 141 H 154/100 H 09/27/24 07:33 145 H 130/86 09/27/24 03:47 36.7 C 114 H 18 125/88 09/27/24 00:36 132 H 152/82 H 09/27/24 00:21 137 H 155/83 H 09/26/24 22:33 36.7 C 138 H 18 156/95 H 09/26/24 22:20 125 H 148/72 H Pulse Ox O2 Del Method 09/27/24 07:58 09/27/24 07:33 09/27/24 03:47 91 Room Air 09/27/24 00:36 09/27/24 00:21 09/26/24 22:33 98 Room Air 09/26/24 22:20 Resident Activity Tracking Resident Involvement: Resident Care Provided Care Provided: Adult Hospital Medicine
[2024-09-27] MEDS ORDERED: PROPOFOL IV EMULSION 10 MG/ML 20 ML VIAL IV ONE (09:57)
[2024-09-27] MEDS ORDERED: LIDOCAINE 2% 2 ML VIAL/AMP(20MG/ML) INFIL ONE (09:57)
--- NOTE | 2024-09-27 10:17 | Anesthesiology Consultation ---
Date of Service September 27, 2024 Assessment & Plan ASA ASA3 Proposed Anesthesia Anesthesia Type: MAC Risk / Benefits Reviewed With: PT / POA / Parent / Guardian, Accepts Plan and Informed Consent Obtained History Surgery Operation Date: 09/27/24 10:15 Proposed Procedures p Cardioversion w/Anesthesia Sedation - Luke Retana MD Height/Weight Height: 5 ft Weight: 61.5 kg Allergies Allergy/AdvReac Type Severity Reaction Status Date / Time brimonidine Allergy Unknown not sure Verified 09/26/24 09:06 isosorbide [From Imdur] Allergy Verified 09/26/24 09:06 Carboxymethylcellulose Allergy Unknown not sure Uncoded 09/26/24 09:06 Medications Home Medications Medication Instructions Recorded Confirmed Last Taken wwxyqtj-rmplpsgazynic-sbkfiota 250 1 tab PO Q6H PRN Migraine Headache 08/25/18 09/26/24 08/25/18 12:00 mg-250 mg-65 mg tablet (Excedrin Migraine) multivitamin 1 tab PO QAM 07/29/22 09/26/24 09/26/24 05:30 potassium chloride 10 mEq 10 meq PO BID #180 tabs 03/07/24 09/26/24 09/26/24 05:30 tablet,extended release(part/cryst) am dose ondansetron HCl 4 mg tablet 4 mg PO Q8H PRN nausea and 03/26/24 09/26/24 Unknown vomiting #30 tabs albuterol sulfate 90 mcg/actuation 2 puff inhalation Q6H PRN 03/27/24 09/26/24 Unknown aerosol inhaler shortness of breath or wheezing #6.7 grams pravastatin 40 mg tablet 40 mg PO HS #90 tabs 05/31/24 09/26/24 09/25/24 20:00 buspirone 10 mg tablet 15 mg (1.5 x 10 mg) PO TID #270 08/03/24 09/26/24 09/26/24 05:30 tabs sertraline 100 mg tablet 100 mg PO BID #180 tabs 08/24/24 09/26/24 09/26/24 05:30 am dose hydrocodone 5 mg-acetaminophen 325 1 tab PO Q6H #120 tabs 09/17/24 09/26/24 09/26/24 05:30 mg tablet acetaminophen 500 mg tablet 1,000 mg PO Q6H PRN Pain 09/26/24 09/26/24 Unknown famotidine 40 mg tablet (Pepcid) 40 mg PO DAILY PRN Heartburn 09/26/24 09/26/24 Unknown furosemide 20 mg tablet (Lasix) 60 mg PO QAM 09/26/24 09/26/24 09/26/24 05:30 losartan 100 mg tablet (Cozaar) 100 mg PO QAM 09/26/24 09/26/24 09/26/24 05:30 metoprolol succinate 25 mg 25 mg PO QAM 09/26/24 09/26/24 09/26/24 05:30 tablet,extended release 24 hr ramelteon 8 mg tablet (Rozerem) 4 mg PO HS 09/26/24 09/26/24 09/25/24 20:00 rivaroxaban 15 mg tablet (Xarelto) 15 mg PO QPM 09/26/24 09/26/24 09/25/24 20:00 Active Medications Generic Name Dose Route Start Last Admin Trade Name Freq PRN Reason Stop Dose Admin Hydrocodone Bitart/Acetaminophen 1 tab 09/26/24 18:00 09/27/24 03:43 Hydrocodone/Acetamophen 5/325mg Tab PO 10/10/24 17:59 1 tab Q6H CHONG Administration Buspirone HCl 15 mg 09/26/24 21:00 09/27/24 08:42 Buspirone 15 Mg Tab PO 10/26/24 20:59 15 mg TID CHONG Administration Diclofenac Sodium 2 gm 09/26/24 21:00 09/27/24 08:41 Diclofenac Sod 1% Gel 100 Gm Tube EXT 10/26/24 20:59 2 gm QID CHONG Administration Protocol Famotidine 40 mg 09/26/24 17:30 09/27/24 08:43 Famotidine 40 Mg Tablet PO 10/26/24 17:29 40 mg DAILY PRN Administration Heartburn Ceftriaxone Sodium 2,000 mg in 50 mls @ 100 mls/hr 09/26/24 21:00 09/26/24 21:58 Rocephin IV 10/01/24 20:59 Infused Q24H CHONG Infusion Diltiazem HCl 125 mg/ Dextrose 125 mls @ 0 mls/hr 09/27/24 09:00 09/27/24 09:57 IV 10/27/24 08:59 0 mg/hr .Q0M CHONG 0 mls/hr Titration Protocol 0 MG/HR Losartan Potassium 100 mg 09/27/24 09:00 09/27/24 08:42 Losartan Potassium 50 Mg Tab PO 10/27/24 08:59 100 mg QAM CHONG Administration Metoprolol Tartrate 5 mg 09/26/24 17:30 09/27/24 00:21 Metoprolol Tartrate 1 Mg/Ml Vial IV 10/26/24 17:29 5 mg Q5M PRN Administration Sustained RVR > 130 Ondansetron HCl 4 mg 09/27/24 08:00 09/27/24 08:38 Ondansetron Inj 2 Mg/Ml 2 Ml Vial IV 10/27/24 07:59 4 mg Q6H PRN Administration Nausea And Vomiting Potassium Chloride 10 meq 09/26/24 21:00 09/26/24 20:52 Potassium Chloride 10 Meq Tabcr PO 10/26/24 20:59 10 meq BID CHONG Administration Pravastatin Sodium 40 mg 09/26/24 21:00 09/26/24 20:52 Pravastatin Sod 40 Mg Tab PO 10/26/24 20:59 40 mg HS CHONG Administration Rivaroxaban 15 mg 09/26/24 19:00 09/26/24 19:26 Rivaroxaban 15 Mg Tab PO 10/26/24 18:59 15 mg QDD CHONG Administration Sertraline HCl 100 mg 09/26/24 21:00 09/27/24 08:43 Sertraline Hcl 100 Mg Tablet PO 10/26/24 20:59 100 mg BID CHONG Administration Past Medical History Medical History History of thyroid cancer Thyroid cancer Afib Exercise / Class Metabolic Activity II 4-5 Yardwork/Stairs/Walk up hill Past Family History Family History Mother Malignant melanoma Coronary heart disease Son Blood clot in vein basilio - 52 years old Asthma Father Coronary heart disease Denies family history of Ovarian cancer Prostate cancer Myocardial infarction Breast cancer Colorectal cancer Past Surgical History Surgical History History of tonsillectomy History of carpal tunnel surgery bilateral History of tooth extraction 11 years old History of section History of tubal ligation History of throat surgery History of cardiac catheterization History of colonoscopy History of colon surgery History of hysterectomy History of back surgery Past Anesthesia History No Hx of Anesthesia Complications and No Family Hx of Anesthesia Complications History of PONV No Hx of PONV and No Hx of Motion Sickness Social History Smoking Status: Never smoker Do You Dip or Chew Tobacco: No Hx Alcohol Use: Yes Alcohol type: wine alcohol intake frequency: holidays/special occasions only Hx Substance Use: No substance use type: painkillers and prescription drug Substance Use Type Other:: Tramadol Review of Systems denies fever/cough/ colds/ chest pain/ SOB/ RYAN denies RYAN Physical Exam Vital Signs Last Vital Signs Temp 36.7 C 09/27/24 03:47 Pulse 130 H 09/27/24 10:03 Resp 18 09/27/24 03:47 BP 154/100 H 09/27/24 07:58 Pulse Ox 91 09/27/24 03:47 O2 Del Method Room Air 09/27/24 03:47 ENMT Mouth: no TMJ abnormality and no dentition abnormality Thyromental Distance: > or= 3.5 Finger Breadths Mallampati Class: II Neck neck extension not limited Respiratory normal respiratory effort; no respiratory distress Auscultation: lungs clear to auscultation bilaterally Cardiovascular Rate/Rhythm: regular rate and regular rhythm Neurologic moves all extremities Psychiatric Orientation: alert and oriented x 3 Testing Laboratory Results 09/27/24 02:54 09/27/24 02:54 PT 11.3 Seconds (9.0-12.0) 09/26/24 13:51 INR 1.0 (0.9-1.1) 09/26/24 13:51 Urine Color Yellow 09/26/24 17:35 Urine Appearance Cloudy (Clear) A 09/26/24 17:35 Urine pH 5.0 (4.5-7.5) 09/26/24 17:35 Ur Specific [place] 1.021 (1.000-1.030) 09/26/24 17:35 Urine Protein 2+ (Negative) H 09/26/24 17:35 Urine Glucose (UA) Negative (Negative) 09/26/24 17:35 Urine Ketones Negative (Negative) 09/26/24 17:35 Urine Nitrite Positive (Negative) A 09/26/24 17:35 Ur Leukocyte Esterase 2+ (Negative) H 09/26/24 17:35 Urine WBC (Auto) >50 /hpf (0-5) H 09/26/24 17:35 Urine RBC (Auto) 0-2 /hpf (0-2) 09/26/24 17:35 U Hyaline Cast (Auto) 6-10 /lpf (0-2) H 09/26/24 17:35 U Epithel Cells (Auto) 0-2 /hpf (0-2) 09/26/24 17:35 Urine Bacteria (Auto) 4+ (None Seen) H 09/26/24 17:35 09/26/24 17:35 Urine Culture - Preliminary Urine,Clean Catch Escherichia coli
--- NOTE | 2024-09-27 10:29 | Cardioversion ---
Date of Service September 27, 2024 PG Electrical Cardioversion Rp Electrical Cardioversion Report Procedure: DC cardioversion (elective) Indication: Symptomatic atrial fibrillation with RVR Anticoagulation: Therapeutic Xarelto for > 4 weeks without missed dose. Informed Written Consent: Obtained. Pt was alert and oriented x 3. Antiarrhythmic theraphy: Amiodarone Sedation: Provided by anesthesiology. Time Out: Performed Procedural Details: Once sufficiently sedated, 200 Joules were delivered in a synchronized fashion. Atrial fibrillation with RVR was successfully converted to sinus rhythm. There were nonsustained episodes of atrial fibrilation intermittently immediately following the procedure. She remained hemodynamically stable throughout. There were no known complications at the time of this note. Plan: 1. Continue therapeutic anticoagulation without interruption for at least 4 weeks, although indicated indefinitely. 2. Continue amiodarone as per her primary stations superintendent. 3. Follow up with Dr. Muñoz in the out patient setting. Coding Level of Care Code 35609 CARDIOVERSION, ELECTIVE Additional Codes Electrical Cardioversion Report ([id number])
--- NOTE | 2024-09-27 10:48 | Anesthesiology Progress Note ---
Date of Service September 27, 2024 Anesthesia Post Procedure Vital Signs Vital Signs: Temp Pulse Pulse Resp BP BP BP 09/27/24 10:30 78 18 147/87 H 09/27/24 10:19 09/27/24 10:18 133 H 20 128/92 09/27/24 10:03 130 H 09/27/24 09:34 98 H 157/69 H 09/27/24 07:58 141 H 154/100 H 09/27/24 07:33 145 H 130/86 09/27/24 03:47 36.7 C 114 H 18 125/88 09/27/24 00:36 132 H 152/82 H 09/27/24 00:21 137 H 155/83 H 09/26/24 22:33 36.7 C 138 H 18 156/95 H 09/26/24 22:20 125 H 148/72 H 09/26/24 21:54 116 H 09/26/24 20:53 128 H 154/83 H 09/26/24 19:32 36.8 C 122 H 18 151/85 H 09/26/24 19:30 09/26/24 18:31 113 H 09/26/24 18:21 09/26/24 17:42 36.4 C L 91 H 16 148/84 H 09/26/24 17:01 09/26/24 16:56 95 H 09/26/24 16:39 126 H 24 09/26/24 16:30 144/95 H 09/26/24 16:27 108 H 19 09/26/24 16:00 140/116 H 09/26/24 16:00 113 H 140/116 H 09/26/24 16:00 140/116 H 09/26/24 16:00 113 H 19 09/26/24 15:39 104 H 142/95 H 09/26/24 15:36 142/95 H 09/26/24 15:36 112 H 16 142/95 H 09/26/24 15:30 124 H 23 09/26/24 15:30 157/109 H 09/26/24 15:00 111 H 23 09/26/24 15:00 141/92 H 09/26/24 14:54 98 H 24 09/26/24 14:30 130/83 09/26/24 14:24 111 H 20 09/26/24 14:00 147/85 H 09/26/24 13:57 122 H 18 09/26/24 13:57 09/26/24 13:55 121 H 09/26/24 13:54 09/26/24 13:53 123/97 09/26/24 13:51 102 H 20 09/26/24 13:38 09/26/24 13:29 36.6 C 105 H 18 138/82 Pulse Ox O2 Del Method O2 Flow Rate 09/27/24 10:30 98 Oxymask 2 09/27/24 10:19 93 Oxymask 4 09/27/24 10:18 85 L Room Air 09/27/24 10:03 09/27/24 09:34 09/27/24 07:58 09/27/24 07:33 09/27/24 03:47 91 Room Air 09/27/24 00:36 09/27/24 00:21 09/26/24 22:33 98 Room Air 09/26/24 22:20 09/26/24 21:54 09/26/24 20:53 09/26/24 19:32 95 Room Air 09/26/24 19:30 Room Air 09/26/24 18:31 09/26/24 18:21 Room Air 09/26/24 17:42 97 Room Air 09/26/24 17:01 Room Air 09/26/24 16:56 09/26/24 16:39 92 09/26/24 16:30 09/26/24 16:27 96 09/26/24 16:00 09/26/24 16:00 09/26/24 16:00 09/26/24 16:00 94 09/26/24 15:39 09/26/24 15:36 09/26/24 15:36 95 Room Air 09/26/24 15:30 95 09/26/24 15:30 09/26/24 15:00 92 09/26/24 15:00 09/26/24 14:54 95 09/26/24 14:30 09/26/24 14:24 94 09/26/24 14:00 09/26/24 13:57 95 09/26/24 13:57 Room Air 09/26/24 13:55 09/26/24 13:54 Room Air 09/26/24 13:53 09/26/24 13:51 96 09/26/24 13:38 Room Air 09/26/24 13:29 96 Room Air Pain Intensity Left Breast: Pain Intensity: 4 Transfer of Care Handoff Completed per policy Notes Mental Status: alert / awake / arousable and participated in evaluation Patient Amnestic to Procedure: Yes Nausea / Vomiting: adequately controlled Pain: adequately controlled Airway Patency, RR, SpO2: stable & adequate BP & HR: stable & adequate Hydration State: stable & adequate Anesthetic Complications: no major complications apparent and Pt Satisfied with anesthetic care
[2024-09-27] MEDS: AMIODARONE 200 MG TAB PO SCH (12:45)
[2024-09-27] MEDS: METOPROLOL TARTRATE 25 MG TAB PO SCH (13:23)
[2024-09-27] MEDS: FUROSEMIDE 20 MG TAB PO SCH (16:59)
--- NOTE | 2024-09-27 18:01 | XCELERA ---
[id number] [id number]
--- NOTE | 2024-09-27 19:19 | Billing Data ---
Date of Service September 27, 2024 Coding Level of Care Code 70457 SUB INP/OBS CARE MIN
--- NOTE | 2024-09-27 23:14 | Electrocardiogram Report ---
Test Reason : Blood Pressure : */* mmHG Vent. Rate : 124 BPM Atrial Rate : 125 BPM P-R Int : * ms QRS Dur : 114 ms QT Int : 346 ms P-R-T Axes : * -51 118 degrees QTcB Int : 497 ms Atrial fibrillation with rapid ventricular response Left anterior fascicular block Abnormal ECG When compared with ECG of 26-Sep-2024 13:49, T wave inversion more evident in Lateral leads Confirmed by Luke Retana ([id number]) on 09/27/2024 11:14:18 PM Referred By: REFERRED SELF Confirmed By: Luke Retana
--- NOTE | 2024-09-27 23:15 | Electrocardiogram Report ---
Test Reason : Blood Pressure : */* mmHG Vent. Rate : 134 BPM Atrial Rate : 117 BPM P-R Int : * ms QRS Dur : 116 ms QT Int : 342 ms P-R-T Axes : * -51 88 degrees QTcB Int : 510 ms Atrial fibrillation with rapid ventricular response with premature ventricular or aberrantly conducte d complexes Left anterior fascicular block Nonspecific ST and T wave abnormality Abnormal ECG When compared with ECG of 26-Sep-2024 19:23, No significant change was found Confirmed by Luke Retana ([id number]) on 09/27/2024 11:14:32 PM Referred By: REFERRED SELF Confirmed By: Luke Retana
[2024-09-28 08:00] LABS: Basophils # (auto) 0.02 K/uL (0.00-0.20); Basophils % (auto) 0.2 %; Eosinophils # (auto) 0.01 K/uL (0.00-0.50); Eosinophils % (auto) 0.1 %; Hematocrit (blood only) 33.9 % (37.0-47.0); Hemoglobin 10.8 g/dl (12.0-16.0); Immature Granulocytes % (auto) 1.2 %; Lymphocytes # (auto) 0.92 K/uL (1.20-3.40); Lymphocytes % (auto) 10.9 %; Mean Corpuscular Hgb Conc 31.9 g/dL (32.0-36.0); Mean Corpuscular Volume 97.4 fL (80.0-100.0); Mean Platelet Volume 10.5 fL (9.4-12.4); Monocytes # (auto) 0.74 K/uL (0.11-0.59); Monocytes % (auto) 8.7 %; Neutrophils # (auto) 6.67 K/uL (1.40-6.50); Neutrophils % (auto) 78.9 %; Platelet Count 189 K/uL (130-400); RDW Coefficient of Variation 14.1 % (11.5-14.5); Red Blood Count 3.48 M/uL (4.20-5.40); White Blood Count 8.46 K/ul (4.8-10.8)
[2024-09-28 08:13] LABS: BUN Creatinine Ratio 33.3 (10-20); Calcium 8.9 mg/dl (8.6-10.3); Creatinine Clr Calc Pharmacy 32.3 ml/min; Potassium 3.8 mmol/L (3.5-5.1)
--- NOTE | 2024-09-28 09:56 | XRay Report ---
XR chest 2V PA/lateral CLINICAL HISTORY: Desaturation overnight. COMPARISON STUDY: Chest CT September 26, 2018 and chest radiograph September 26, 2024. FINDINGS: Elevation of the right hemidiaphragm is unchanged since CT of September 26, 2018. There is m oderate cardiomegaly. There is no evidence for pulmonary edema. No pneumothorax or pleural effusion. A few patchy bilateral opacities are noted. These are predominantly linear in configuration. IMPRESSION: 1. A few patchy bilateral airspace opacities which favor atelectasis although an infectious process c ould appear similar. 2. Stable cardiomegaly. No radiographic evidence for pulmonary edema. ACT 112: Negative or not required by law. Electronically signed by: Edu Butler M.D. 09/28/2024 9:55 AM
[2024-09-28] MEDS: FUROSEMIDE INJ 20 MG/2 ML VIAL IV STA (13:13)
--- NOTE | 2024-09-28 14:30 | Hospitalist Progress Note ---
Date of Service September 28, 2024 Assessment & Plan (1) Atrial fibrillation with rapid ventricular response: (2) Hypertension: (3) Generalized weakness: (4) Elevated troponin: Plan #A-fib with RVR Rate controlled S/P DC Cardioversion Indicated for Persistent Afib with RVR, Constant Chest pain and anxiety Despite Amiodarone 100 mg daily/ Metoprolol tartrate 5 mg IV( 3 doses)/ Diltiazem 1 dose Post CV; Overnight Tele: NSR with occ PVCs, PACs, Atrial tachycardia BP: 135/74 H/O DC cardioversion in 2019 --- PAF afterwards Echo 05/2024: EF 55-59%, mild LVH TSH: 2.3 Cardio: Continue Amiodarone 100 mg QAM. Metoprolol 25 mg PO BID started Can DC from cardiology side #Altered mentation Possible delirium sec to admission, age, anesthesia, medicine Improving than before, still little off Close Monitor #Post -procedure Atelectasis/ Baseline COPD Breathing shallow with increased RR today. No use of accessory muscles Chest Xray: Patchy atelectasis BL Advise: Incentive Spirometry O2 as minimal support as possible( 1-3 L since last night) Tried to wean off today, desaturated again SPO2 target >92% Under PRN albuterol #Elevated Troponin Troponin 20.6---20.8----34; likely demanded ischemia Serial ECG: No ST-T changes #CAD (coronary artery disease) nonocclusive coronary disease H/O Hyperlipidemia Medical management : Pravastatin 40 mg PO HS #HTN BP at goal. BP: 135/74 Continue losartan 100 mg daily, metoprolol succinate ER 25 mg daily. #Anxiety Acute on chronic anxiety Sertraline 100 mg BID ongoing Bedside counselling provided #UTI Asymptomatic bacteruria CS: E. Coli sensitive to all #Discharge plan: Cardiac side; cleared for DC OT/PT: recommends rehab Live at home with who need help himself Patient wants to go home. Re-evaluation by OT/PT after acute care and decide. DVT : Rivaroxaban CODE: Full code Diet: Heart healthy Disposition: OT/PT recommends rehab placement Admission and Anticipated Discharge Date Admission Date: September 26, 2024 Supervising Physician Co-Signing Physician Notes I personally examined the patient and verified all basilio points of history and exam, discussed case, and agree with decision making with Dr Don no sob. a few palpitations but no other chest sx. vitals noted nad heent nc at mmm breathing unlabored no accessory muscles good effort - demonstrates use of incentive spirometry - had to gymnastic coach some - after using more properly did have a small coughing fit. afib/RVR with mild myocardial demand ischemia- s/p cardioversion, now NSR delirium - seems mild possibly metabolic encephalopathy due to drugs but also can easily be from age/hospital environment - seems better today, but still continue to follow weakness/deconditioning - PT/OT rec rehab she wants to go home discussed safety and basics of what would be needed to go home CKD 3 stable - mostly age related dispo - uncertain - PT/OT rec rehab but she wants to go home - if shows progress to where she'd be safe, possible she could go home instead of rehab but will have to keep working on strength/mobility here; need to wean O2 (atelectasis causing hypoxia) - IS and movement; and of course will want to make sure delirium doesn't recur --> if all lines up then home becomes possible/realistic. Subjective Today morning [place] is feeling better she says. However nurse informed me her saturation was a low as 80 during night, hence started in O2 2L/min. She feels her chest pain is lot better, does not feel SOB more than yesterday, No palpitation. She feels weak however better rested compared to yesterday. No new cough, dyspnea, sudden chestpain. No fever, no urinary symptoms. No burning urine, no increased frequency. Review of Systems Review of Systems: As per HPI Physical Exam Physical Exam: Constitutional: Well appearing,Not in acute distress HEENT: Atraumatic, Normocephalic, No conjunctival injection CVS: S1 S2 murmur+, RR, no LE edema Respiratory: Breathing shallow. BL decreased air entry. Basal Rales noted bilaterally. GI: Soft, Nondistended, Nontender, Normal Bowel sounds + MSK: Deformed joints, No power deficit Neuro: Alert, Oriented to TPP, No Focal deficit Psych: Cooperative on exam Results & Data Results & Data Vital Signs (Past 12 Hours) Vital Signs Temp Pulse Pulse Resp BP BP Pulse Ox 09/28/24 14:12 67 09/28/24 13:40 09/28/24 12:30 98 09/28/24 10:53 36.6 C 60 15 135/74 97 09/28/24 07:52 09/28/24 07:36 82 09/28/24 07:28 37 C 92 H 16 162/81 H 94 09/28/24 03:43 37.0 C 77 18 172/94 H 95 Pulse Ox Pulse Ox O2 Del Method O2 Flow Rate O2 Flow Rate O2 Flow Rate 09/28/24 14:12 09/28/24 13:40 98 99 2 2 09/28/24 12:30 09/28/24 10:53 Nasal Cannula 1 09/28/24 07:52 Nasal Cannula 2 09/28/24 07:36 09/28/24 07:28 Nasal Cannula 2 09/28/24 03:43 Nasal Cannula 3.0 Resident Activity Tracking Resident Involvement: Resident Care Provided Care Provided: Adult Hospital Medicine
--- NOTE | 2024-09-28 16:20 | Billing Data ---
Date of Service September 28, 2024 Coding Level of Care Code 37699 SUB INP/OBS CARE
--- NOTE | 2024-09-29 06:51 | Hospitalist Progress Note ---
Date of Service September 29, 2024 Assessment & Plan (1) Atrial fibrillation with rapid ventricular response: (2) Hypertension: (3) Generalized weakness: (4) Elevated troponin: Plan #A-fib with RVR Rate controlled S/P DC Cardioversion-Indicated for Persistent Afib with RVR, Constant Chest pain and anxiety which persisted despite Amiodarone 100 mg daily/ Metoprolol tartrate 5 mg IV( 3 doses)/ Diltiazem 1 dose. Pt has hx of DC cardioversion in 2019 --- PAF afterwards. Echo 05/2024: EF 55- 59%, mild LVH -Post CV; Overnight Tele: NSR with occ PVCs, PACs, Atrial tachycardia, Short duration PAC's this morning -Cardio Recs 09/28/24: Continue Amiodarone 100 mg QAM. Continue Metoprolol 25 mg PO BID started Can DC from cardiology side #Altered mentation Possible delirium after CV procedure. This morning pt is A &O x 3 and able to recall both recent and past events with apparent accuracy. -Will continue to monitor closely #Post -procedure Atelectasis/ Baseline COPD Pt has hx of COPD and uses albuterol inhaler at home, no supplemental O2 use. Pt is now requiring supplemental oxygen between 1-2L to maintain O2 sat >90%. Pt re ports increased sputum production in the last 1-2 days. Chest Xray on 09/28/24 showed patchy atelectasis bilaterally. Pt denies fever/chills. Has received 2 dose of IV ceftriaxone. Plan to further investigate possible pneumonia. -Continue IV ceftriaxone 2g qd -Added IV doxycycline 100mg BID to cover atypicals -Ordered sputum cx and gram stain -Ordered MRSA nasal swab -Continue PRN albuterol -Continue Incentive Spirometry - Continue O2 as minimal support as possible( 1-3 L since last night) SPO2 target >92% #Elevated Troponin Troponin 20.6---20.8----34; likely demanded ischemia Serial ECG: No ST-T changes #CAD (coronary artery disease) nonocclusive coronary disease H/O Hyperlipidemia -Continue Pravastatin 40 mg PO HS #HTN BP at goal. BP: 122/70 -Continue losartan 100 mg daily, metoprolol succinate ER 25 mg daily. #Anxiety Acute on chronic anxiety -Sertraline 100 mg BID ongoing -Bedside counselling provided #UTI Asymptomatic bacteruria CS: E. Coli sensitive to all #Discharge plan: OT/PT: recommends rehab Pt prefers DC home with her , who need help himself Re-evaluation by OT/PT once O2 demand resolves along with continued shared decision making DVT : Rivaroxaban CODE: Full code Diet: Heart healthy Disposition: OT/PT recommends rehab placement Admission and Anticipated Discharge Date Admission Date: September 26, 2024 Supervising Physician Co-Signing Physician Notes Patient seen and examined, chart reviewed, case discussed with Dr. Moore and I agree with the assessment and plan as above except as otherwise noted Labs and images reviewed 84-year-old female presents with A-fib RVR with poor tolerance and significant limiting dyspnea on attempted exertion. Symptoms dramatically improved following DC cardioversion. Fortunately she remains with a low-grade oxygen requirement. She does not have any wheezing however has had increased cough and thickening of her sputum production and chest x-ray did show some patchy atelectasis bilaterally with suspicious opacities which could represent some rate related fluid but from which pneumonia is not excluded. Lungs are with slight bibasial crackles but no wheezing on reassessment. A&Ox3, nondistressed. RRR. Did have some PACs and a run of PAT this AM but no recurrence of afib so far. She has been on Rocephin however has not been on any coverage for atypicals or MRSA. MRSA nares pending and will expand to cover atypical pneumonia with doxycycline. Azithromycin deferred due to QT. Overall she pediatrics appears improving clinically progressing, hopefully will get stronger and wean her oxygen requirement down over the next day or so. Patient is very resistant to going to rehab however high level of concern for patient's ability to care for herself and her with her current level of strength. Will continue to maximize function wean oxygen and treat possible underlying atypical pneumonia and reassess with PT/OT. Yovany Ho is an 84 yo fmale who presented in A-fib with RVR. She was cardioverted on 09/28/24 and returned to sinus rhythm however upon awaking from sedation, pt was found to have delirium. Overnight, she had an 8 sec run of PAC and another 5 sec run at 0700. This morning, pt reports feeling well. She is alert and oriented. She denies CP, SOB, dizziness, nausea, abdominal pain, fever/chills, new joint pains or changes in sensation. She does endorse coughing with sputum production. She reports she does not use supplemental oxygen at home, but does use an inhaler for COPD. She is using her spirometer when she remembers. Review of Systems Review of Systems: As per HPI Physical Exam Physical Exam: Constitutional: Well appearing,Not in acute distress HEENT: Atraumatic, Normocephalic, No conjunctival injection CVS: S1 S2 murmur+, Regular rate and rhythm while in the room, no LE edema Respiratory: No accessory muscle used at rest. Decreased air entry bilaterally. No wheezing however faint basal rales noted bilaterally. GI: Soft, Nondistended, Nontender, Normal Bowel sounds MSK: Deformed joints at bilateral hands, No power deficit Neuro: Alert and Oriented x 3 , No Focal deficit Psych: Cooperative on exam. Mood congruent Results & Data Results & Data Vital Signs (Past 12 Hours) Vital Signs Temp Pulse Pulse Resp BP Pulse Ox O2 Del Method 09/29/24 03:22 37.0 C 81 20 110/47 L 96 Nasal Cannula 09/28/24 23:03 36.9 C 65 19 142/84 H 97 Nasal Cannula 09/28/24 22:49 68 09/28/24 22:00 Nasal Cannula 09/28/24 20:21 36.6 C 70 18 101/58 L 94 Nasal Cannula O2 Flow Rate 09/29/24 03:22 2.0 09/28/24 23:03 2.0 09/28/24 22:49 09/28/24 22:00 1 09/28/24 20:21 2.0 Resident Activity Tracking Resident Involvement: Resident Care Provided Care Provided: Adult Hospital Medicine
[2024-09-29 07:55] LABS: Basophils # (auto) 0.01 K/uL (0.00-0.20); Basophils % (auto) 0.2 %; Eosinophils # (auto) 0.17 K/uL (0.00-0.50); Eosinophils % (auto) 2.8 %; Hematocrit (blood only) 32.6 % (37.0-47.0); Hemoglobin 10.1 g/dl (12.0-16.0); Immature Granulocytes # (auto) 0.08 K/uL (0.01-0.20); Immature Granulocytes % (auto) 1.3 %; Lymphocytes # (auto) 0.57 K/uL (1.20-3.40); Lymphocytes % (auto) 9.3 %; Mean Corpuscular Hemoglobin 30.8 pg (25.0-34.0); Mean Corpuscular Volume 99.4 fL (80.0-100.0); Mean Platelet Volume 9.8 fL (9.4-12.4); Monocytes # (auto) 0.41 K/uL (0.11-0.59); Monocytes % (auto) 6.7 %; Neutrophils % (auto) 79.7 %; Nucleated RBC # (auto) 0.03 K/uL (0.00-0.12); Nucleated RBC % (auto) 0.5 %; Platelet Count 184 K/uL (130-400); RDW Coefficient of Variation 13.7 % (11.5-14.5); Red Blood Count 3.28 M/uL (4.20-5.40); White Blood Count 6.14 K/ul (4.8-10.8)
[2024-09-29 08:31] LABS: Calcium 8.6 mg/dl (8.6-10.3)
[2024-09-29 08:36] LABS: BUN Creatinine Ratio 38.1 (10-20); Creatinine Clr Calc Pharmacy 29.2 ml/min
[2024-09-29 09:26] LABS: Potassium 3.5 mmol/L (3.5-5.1)
[2024-09-29] MEDS: DOXYCYCLINE HYCLATE 100 MG in DEXTROSE 5% MINI-B 100 ML IV SCH (12:36)
--- NOTE | 2024-09-29 13:20 | Billing Data ---
Date of Service September 29, 2024 Coding Level of Care Code 58553 SUB INP/OBS CARE
--- NOTE | 2024-09-30 06:37 | Hospitalist Progress Note ---
Date of Service September 30, 2024 Assessment & Plan (1) Atrial fibrillation with rapid ventricular response: (2) Hypertension: (3) Generalized weakness: (4) Elevated troponin: (5) Transaminitis: Plan #A-fib with RVR S/P successful cardioversion on 09/28/24. Since then Tele has nots short runs of PACs, PATs. All are asymptomatic. Echo 05/2024: EF 55-59%, mild LVH. Today, noted acute elevation in ALT and AST, likely due to initiation of amiodarone. Plan to consult with cardio regarding alternative anti-arrhythmic medications that we would be appropriate. - Planned to hold Amiodarone 100 mg, but after speaking to Dr. Pacheco, less likely to have caused transaminitis. Likely safe to continue. - Continue Metoprolol 25 mg PO BID started #Transaminitis Increase in ALT and AST from 09/26/24 to today. - Hold Tylenol - Ordered RUQ ultrasound #Altered mentation Possible delirium after CV procedure. This morning pt is A &O x 3 and able to recall both recent and past events with apparent accuracy. -Will continue to monitor closely #Post -procedure Atelectasis/ Baseline COPD Pt has hx of COPD and uses albuterol inhaler at home, no supplemental O2 use. Pt was requiring supplemental O2 overnight of 1-2L to maintain O2 sat >90%. Chest Xray on 09/28/24 showed patchy atelectasis bilaterally. Pt denies fever/chills. MRSA swab from 09/29/24 was negative. Sputum culture and gram stain was not collected on 09/29/24. -Continue IV ceftriaxone 2g qd -Continue IV doxycycline 100mg BID to cover atypicals -Continue PRN albuterol -Continue Incentive Spirometry -Wean from supplemental oxygen with SPO2 target >92% #Elevated Troponin Troponin 20.6---20.8----34; likely demanded ischemia Serial ECG: No ST-T changes #CAD (coronary artery disease) nonocclusive coronary disease H/O Hyperlipidemia -Continue Pravastatin 40 mg PO HS #HTN BP at goal. BP: 118/66 -Continue losartan 100 mg daily, metoprolol succinate ER 25 mg daily. #Anxiety Acute on chronic anxiety -Sertraline 100 mg BID ongoing -Bedside counselling provided #UTI Asymptomatic bacteruria #Discharge plan: OT/PT: recommends rehab Pt prefers DC home with her , who needs help himself Re-evaluation by OT/PT once O2 demand resolves along with continued shared decision making DVT : Rivaroxaban CODE: Full code Diet: Heart healthy Disposition: OT/PT recommends rehab placement Admission and Anticipated Discharge Date Admission Date: September 26, 2024 Supervising Physician Co-Signing Physician Notes Patient seen and examined, chart reviewed, case discussed with Dr. Moore and I agree with the assessment and plan as above except as otherwise noted Labs and images reviewed 84-year-old female presented with A-fib RVR with poor tolerance and significant limiting dyspnea on attempted exertion. Symptoms dramatically improved following DC cardioversion. Remains without wheezing, does still have a new o2 requirement and suspicion for PNA. Sinus congestion today, possibly viral UTI. Lungs are clear today, pt appears to be progressing. A&Ox3, nondistressed. RRR. Did again have some PACs and a run of PAT this AM but no recurrence of afib so far. Rocephin/Doxy continued for postential CAP. Steroids deferred in absence of wheezing and sensitivity. Hopefully we can wean her oxygen requirement down over the next day or so. PT/OT pending. Does have a new transaminitis. DDx includes hepatic congestion/mild shock liver given degree of sx on onset, lower suspicion for amiodarone toxicity given low dosing. RUQ US is pending, murphys negative, no bilirubin elevation suggestive of obstructive dz. Tylenol held. Agree w/ above Subjective [place] is an 84 yo female who presented in A-fib with RVR. She was cardioverted on 09/28/24 and returned to sinus rhythm however upon awaking from sedation, pt was found to have delirium. Pt has had small runs of PAC or PAT found on telemetry, but no signs of a-fib. This morning, pt reports she did not sleep well last night due to increased anxiety. Pt reports feeling tired today. She continues alert and oriented. She denies CP, SOB, dizziness, nausea, abdominal pain, fever/chills, new joint pains or changes in sensation. She does continues to endorse coughing with sputum production, but sputum sample cup remains empty in her room. She remains on supplemental oxygen. Review of Systems Review of Systems: As per HPI Physical Exam Physical Exam: Constitutional: Well appearing,Not in acute distress HEENT: Atraumatic, Normocephalic, No conjunctival injection CVS: S1 S2 systolic murmur, Regular rate and rhythm while in the room, no LE edema Respiratory: No accessory muscle used at rest. Decreased air entry bilaterally. No wheezing however faint basal rales noted bilaterally. GI: Soft, Nondistended, Nontender, Normal Bowel sounds MSK: Deformed joints at bilateral hands, No power deficit Neuro: Alert and Oriented x 3 , No Focal deficit Psych: Cooperative on exam. Mood congruent Results & Data Results & Data Vital Signs (Past 12 Hours) Vital Signs Temp Pulse Pulse Resp BP Pulse Ox O2 Del Method 09/30/24 04:49 78 09/30/24 03:21 36.5 C 68 16 122/68 96 Nasal Cannula 09/29/24 23:49 36.9 C 89 15 121/60 97 Nasal Cannula 09/29/24 20:45 36.6 C 78 19 120/68 94 Nasal Cannula O2 Flow Rate 09/30/24 04:49 09/30/24 03:21 2.0 09/29/24 23:49 2.0 09/29/24 20:45 2.0 Resident Activity Tracking Resident Involvement: Resident Care Provided Care Provided: Adult Hospital Medicine
[2024-09-30 06:41] LABS: Hematocrit (blood only) 31.6 % (37.0-47.0); Mean Corpuscular Hemoglobin 31.1 pg (25.0-34.0); Mean Corpuscular Hgb Conc 31.6 g/dL (32.0-36.0); Mean Corpuscular Volume 98.1 fL (80.0-100.0); Nucleated RBC # (auto) 0.03 K/uL (0.00-0.12); Nucleated RBC % (auto) 0.5 %; Platelet Count 202 K/uL (130-400); RDW Coefficient of Variation 13.4 % (11.5-14.5); RDW Standard Deviation 48.3 fL (36.4-46.3); Red Blood Count 3.22 M/uL (4.20-5.40); White Blood Count 5.81 K/ul (4.8-10.8)
[2024-09-30 07:04] LABS: Albumin Globulin Ratio 1.2 (0.9-2); Albumin Level 3.4 gm/dl (3.4-5.0); BUN Creatinine Ratio 36.8 (10-20); Bilirubin,Total 0.3 mg/dl (0.2-1.0); Calcium 8.7 mg/dl (8.6-10.3); Creatinine Clr Calc Pharmacy 37.9 ml/min; Globulin 2.9 gm/dl (2.5-4.0); Potassium 3.4 mmol/L (3.5-5.1); Total Protein 6.3 gm/dl (6.0-8.3)
[2024-09-30] MEDS: POTASSIUM CHLORIDE CRTAB 20 MEQ TABCR PO STA (12:28)
--- NOTE | 2024-10-01 02:54 | Ultrasound Report ---
EXAM: US liver CLINICAL HISTORY: HX: prev CT 06/30/18 (no report). Transaminitis, bilirubin wnl. Patient has difficulty with deep inspirations, somewhat limiting exam windows. PANC: WNL as seen. duct 2 mm. LIVER: 12.3 mm, WNL as seen. GB : wall 2.1mm. Small echogenic foci with shadowing, limited vis due to small size and adjacent bowel. negative couch''s sign. CBD: pao up to 5.3 mm. RT KID: no hydro. 5mm cortical ?cyst UP, TECHNIQUE: Limited ultrasound of right upper quadrant was performed in greyscale and Doppler. Multiple images were obtained in transverse and longitudinal planes. COMPARISON: CT chest, 09/26/2018 was reviewed. FINDINGS: Note: Exam is somewhat limited due to patient difficulty with deep inspirations. Liver: Liver size: 12.3 cm in length. Liver appears normal in size with a homogeneous echo texture. No evidence of focal lesions, cysts, or masses. Hepatic vasculature appears normal. Gallbladder: Gallbladder size: Normal in size and shape. The Gallbladder wall measures 2.1 mm. Small echogenic foci with shadowing were noted, though visualization is limited due to the small size and adjacent bowel. No gallbladder wall edema or pericholecystic fluid was noted. Negative Couch's sign. Biliary Tree: Common bile duct diameter: Measures up to 5.3 mm, within normal limits in caliber. No evidence of choledocholithiasis or biliary obstruction. Pancreas: Appears within normal limits. The main pancreatic duct measures 2 mm, normal. Right Kidney: Slightly increased parenchymal echogenicity, which may suggest stage 1 chronic kidney disease. No hydronephrosis was observed. A 5 mm cortical cyst is noted in the upper pole. IMPRESSION: 1. The gallbladder shows small echogenic foci with shadowing, likely representing small gallstones/dense sludge. Visualization is limited due to the adjacent bowel. No evidence of acute cholecystitis. Gallbladder seen on prior study. 2. Stage 1 chronic right kidney disease. Recommend clinical and laboratory correlation. Electronically signed by Simona Nichols 10-01-2024 02:53 AM
--- NOTE | 2024-10-01 07:03 | Hospitalist Progress Note ---
Date of Service October 01, 2024 Assessment & Plan (1) Atrial fibrillation with rapid ventricular response: Plan: S/P successful cardioversion on 09/28/24. Since then Tele shows short runs of PACs, PATs, all asymptomatic. Echo done on 09/27/24, EF 55-60% with severe biatrial dilation but no significant wall motion abnormalities - continue Amiodarone 100 mg - continue Metoprolol 25 mg PO BID (2) Hypertension: Plan: BP mostly at goal, slightly elevated today to 163/77 - continue losartan 100 mg daily, metoprolol succinate ER 25 mg daily (3) Generalized weakness: Plan: PT/OT following - PT to evaluate patient again prior to discharge, recommendation for pt to have home PT vs outpatient PT, though patient is strongly in favor of outpatient PT (4) Pneumonia: Plan: acute, suspected CAP due to symptoms and cxr - continue on PO doxycycline 100mg BID through 10/04/24 (switched from IV today) - continue monitoring work of breathing and symptoms of chest pain, fever (5) Elevated troponin: Plan: peak value at 69.6 on 09/27/24, current asymptomatic likely elevated in setting of demand ischemia due to atrial fibrillation at the time Echo done on 09/27/24, EF 55-60% with severe biatrial dilation but no significant wall motion abnormalities (6) Transaminitis: Plan: acute, asymptomatic - RUQ US only significant for possibility of small gallstones and/or dense sludge - holding tylenol for now - CMP in morning 10/02/24 to trend - likely can be managed outpatient Plan #Post -procedure Atelectasis/ Baseline COPD Pt has hx of COPD and uses albuterol inhaler at home, no supplemental O2 use. Pt was requiring supplemental O2 overnight of 1-2L to maintain O2 sat >90%. Chest Xray on 09/28/24 showed patchy atelectasis bilaterally. Pt denies fever/chills. MRSA swab from 09/29/24 was negative. Sputum culture and gram stain was not helder ected on 09/29/24. -Continue IV ceftriaxone 2g qd -Continue IV doxycycline 100mg BID to cover atypicals -Continue PRN albuterol -Continue Incentive Spirometry -Wean from supplemental oxygen with SPO2 target >92% #CAD (coronary artery disease) nonocclusive coronary disease H/O Hyperlipidemia -Continue Pravastatin 40 mg PO HS #Anxiety Acute on chronic anxiety -Sertraline 100 mg BID ongoing -Bedside counselling provided #UTI Asymptomatic bacteruria #Discharge plan: OT/PT: recommends rehab, patient strongly in favor of outpatient PT, will at least try to get PT evaluation for home PT recommendation as is also no in great physical condition Pt prefers DC home with her , who needs help himself Re-evaluation by OT/PT once O2 demand resolves along with continued shared decision making DVT : Rivaroxaban CODE: Full code Diet: Heart healthy Disposition: OT/PT recommendation for PT: home vs outpatient Admission and Anticipated Discharge Date Admission Date: September 26, 2024 Supervising Physician Co-Signing Physician Notes ATTESTATION I also saw the patient and confirmed basilio portions of the history and exam. I agree with the impression and plan in the resident documentation, and as summarized below. Off oxygen this morning. She is interested in returning home, today, although most recent PT note recommended inpatient PT. She is feeling better this morning so we discussed having PT re-evaluate her today to help with discharge planning. EXAM 153/72, 60, 16 Pleasant. NAD CV RRR (tele review shows sinus with PACs, PAT, but no a-fib) Lungs clear, decreased bases DATA Labs hemoglobin 9.4 BUN/Cr 26/0.76 Imaging US gallbladder shows small stones/sludge Micro Urine culture demonstrated casas sensitive e.coli IMPRESSION & PLAN Pneumonia, improving PAF, S/P cardioversion, now in sinus Mild Transaminitis Cholelithiasis without evidence of cholecystitis PT to re-evaluate today Increase activity Trend LFTs, this may require outpatient follow up Additional per resident documentation Subjective Patient was seen and evaluated at bedside this AM. Sitting comfortably in chair upon introduction. Denies any discomfort or pain overnight, endorses sleeping well. Endorses she is feeling well today and expresses desire to go home. Has been on room air as of this morning and satting in low 90s%, no SOB, coughing, or chest pain reported. [[[place] is an 84 yo female who presented in A-fib with RVR. She was cardioverted on 09/28/24 and returned to sinus rhythm however upon awaking from sedation, pt was found to have delirium. Pt has had small runs of PAC or PAT found on telemetry, but no signs of a-fib. This morning, pt reports she did not sleep well last night due to increased anxiety. Pt reports feeling tired today. She continues alert and oriented. She denies CP, SOB, dizziness, nausea, abdominal pain, fever/chills, new joint pains or changes in sensation. She does continues to endorse coughing with sputum production, but sputum sample cup remains empty in her room. She remains on supplemental oxygen. ]] Review of Systems Review of Systems: per HPI Physical Exam Physical Exam: Constitutional: HEENT: Cardiovascular: Respiratory: GI: Neuro: Results & Data Results & Data Vital Signs (Past 12 Hours) Vital Signs Temp Pulse Pulse Resp BP BP Pulse Ox 10/01/24 03:19 36.8 C 67 16 138/85 96 09/30/24 23:48 64 09/30/24 23:18 36.8 C 88 16 142/61 H 94 09/30/24 20:06 79 115/88 O2 Del Method 10/01/24 03:19 Room Air 09/30/24 23:48 09/30/24 23:18 Room Air 09/30/24 20:06 Resident Activity Tracking Resident Involvement: Resident Care Provided Care Provided: Adult Hospital Medicine
[2024-10-01 07:33] LABS: Hematocrit (blood only) 36.3 % (37.0-47.0); Hemoglobin 11.4 g/dl (12.0-16.0); Mean Corpuscular Hemoglobin 31.2 pg (25.0-34.0); Mean Corpuscular Hgb Conc 31.4 g/dL (32.0-36.0); Mean Corpuscular Volume 99.5 fL (80.0-100.0); Mean Platelet Volume 9.7 fL (9.4-12.4); Nucleated RBC # (auto) 0.03 K/uL (0.00-0.12); Nucleated RBC % (auto) 0.5 %; Platelet Count 269 K/uL (130-400); RDW Coefficient of Variation 13.9 % (11.5-14.5); RDW Standard Deviation 50.4 fL (36.4-46.3); Red Blood Count 3.65 M/uL (4.20-5.40); White Blood Count 5.54 K/ul (4.8-10.8)
[2024-10-01 07:52] LABS: Albumin Globulin Ratio 1.1 (0.9-2); Albumin Level 3.8 gm/dl (3.4-5.0); BUN Creatinine Ratio 34.2 (10-20); Bilirubin,Total 0.4 mg/dl (0.2-1.0); Calcium 9.4 mg/dl (8.6-10.3); Creatinine Clr Calc Pharmacy 43.4 ml/min; Globulin 3.4 gm/dl (2.5-4.0); Potassium 3.6 mmol/L (3.5-5.1); Total Protein 7.2 gm/dl (6.0-8.3)
[2024-10-01] MEDS: DOXYCYCLINE HYCLATE 100 MG CAP PO SCH (21:37)
[2024-10-02 03:26] VITALS: RESP 16
[2024-10-02 06:47] LABS: Hematocrit (blood only) 31.5 % (37.0-47.0); Hemoglobin 10.1 g/dl (12.0-16.0); Mean Corpuscular Hemoglobin 31.1 pg (25.0-34.0); Mean Corpuscular Hgb Conc 32.1 g/dL (32.0-36.0); Mean Corpuscular Volume 96.9 fL (80.0-100.0); Platelet Count 234 K/uL (130-400); RDW Coefficient of Variation 13.7 % (11.5-14.5); RDW Standard Deviation 48.6 fL (36.4-46.3); Red Blood Count 3.25 M/uL (4.20-5.40); White Blood Count 6.56 K/ul (4.8-10.8)
[2024-10-02 07:21] LABS: Albumin Globulin Ratio 1.1 (0.9-2); Albumin Level 3.3 gm/dl (3.4-5.0); BUN Creatinine Ratio 39.7 (10-20); Bilirubin,Total 0.5 mg/dl (0.2-1.0); Calcium 8.9 mg/dl (8.6-10.3); Creatinine Clr Calc Pharmacy 48.5 ml/min; Potassium 3.3 mmol/L (3.5-5.1); Total Protein 6.3 gm/dl (6.0-8.3)
[2024-10-02 11:34] VITALS: BP 150/81; PULSE 66; TEMP 97.9; O2SAT 94
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
--- NOTE | 2024-10-03 14:41 | Electrocardiogram Report ---
Test Reason : Blood Pressure : */* mmHG Vent. Rate : 83 BPM Atrial Rate : 76 BPM P-R Int : * ms QRS Dur : 116 ms QT Int : 400 ms P-R-T Axes : * 234 222 degrees QTcB Int : 470 ms Suspect arm lead reversal, interpretation assumes no reversal Sinus rhythm with premature ventricular or aberrantly conducted complexes Premature atrial complexes Nonspecific ST and T wave abnormality Abnormal ECG When compared with ECG of 27-Sep-2024 10:26, No significant change taking into account lead reversal Confirmed by Mayito Vaz ([id number]) on 10/03/2024 2:41:17 PM Referred By: REFERRED SELF Confirmed By: Mayito Vaz
== END 2024-10-02 13:07 | disposition home or self-care (01) | DRG 308 ==
LOC: ED 13:18 → 2S 16:30 → SUATTDRO 16:30 → 2S 17:01